=== PATIENT | male | born 1970 | race Caucasian/White ===

== ENCOUNTER 2022-05-25 15:06 | Outpatient (RCR) | payer MEDICAID, SELFPAY | END 2022-07-22 14:14 | disposition home or self-care (01) | PROVIDERS: PCP Family Medicine; Visit Provider Family Medicine | DX: M54.9 Dorsalgia, unspecified (principal); Z51.89 Encounter for other specified aftercare | CPT/HCPCS: 97110; 97140; 97162 ==

== ENCOUNTER 2022-06-15 15:11 | Outpatient (CLI) | payer MEDICAID, SELFPAY ==
[2022-06-15 16:48] VITALS: BP 138/76; PULSE 99; RESP 18
--- NOTE | 2022-06-15 17:37 | P.STN_ITS ---
Stress Test Note Date Date Seen: 06/15/22 Providers Referring provider: Osman Barros Primary care provider: Osman Barros Stress test physician: Philippe Nieto Stress Test Note Stress test ordered: Stress Echo Indication for test: Chest pain Results discussion: Patient is seen for a stress echo, after discussion the risks benefits and side effects to the telephone recorder, he would like to proceed pretest EKG shows a ventricular rate of 83, with a blood pressure 122 and 68. Small Q-waves are noted in the anterior leads in lead 3. Unknown if these are pre-existing. Following normal Blaise protocol patient is exercised for a total time of 9 minutes 46 seconds and achieved a metabolic level of 11.3. During this test he had no chest pain no shortness of breath, pre-existing changes did not change. There is no acute ST wave changes, there is no dysrhythmias, and he had no significant chest pain just some mild fatigue. Impression: Negative electrographic portion of stress echo Follow up suggested: Await echo images these will be read by Cardiology, patient left this testing facility in excellent condition, to follow as above.
== END 2022-06-15 15:12 | disposition home or self-care (01) ==
LOC: STRESS 15:11
PROVIDERS: PCP Family Medicine; Visit Provider Family Medicine
DX: R07.9 Chest pain, unspecified (principal); I34.0 Nonrheumatic mitral (valve) insufficiency
CPT/HCPCS: 93016; 93325; 93351

== ENCOUNTER 2022-08-25 07:05 | Outpatient (CLI) | payer MEDICAID, SELFPAY ==
--- NOTE | 2022-08-25 07:15 | CRLHL7_ITS ---
For Patients: As a result of the Century Cures Act, medical imaging exams and procedure reports are released immediately into your electronic medical record. You may view this report before your referring provider. If you have questions, please contact your health care provider. INDICATION: Back pain radiating into the lower extremities. TECHNIQUE: Multiplanar multisequence noncontrast MR images acquired through the lumbar spine. COMPARISON: None. FINDINGS: The lumbar lordosis is preserved. Mild leftward lumbar curvature. Vertebral heights maintained. No acute fracture. No concerning T1 hypointense marrow replacing lesions or significant marrow edema. Normal conus terminates at L1. T12-L1: No spinal canal or neural foraminal narrowing. L1-2: No spinal canal or neural foraminal narrowing. L2-3: Mild disc degeneration. No spinal canal or neural foraminal narrowing. L3-4: Moderate disc degeneration. Ventral annular fissure. Circumferential disc bulge. Mild facet arthropathy. Minimal spinal canal narrowing. Urlm-om-lgyfwzvh right and mild left lateral recess narrowing. Minimal bilateral neural foraminal narrowing. L4-5: Trace retrolisthesis. Moderate disc degeneration. Posterior disc bulging and endplate spondylitic ridging. Mild facet arthropathy. Mild spinal canal narrowing. Gbhe-yz-zeocjsmn narrowing of the lateral recesses. Vkiu-qg-pvdcpyfl right and mild left neural foraminal narrowing. L5-S1: Moderately advanced disc degeneration. Left eccentric disc height loss associated with type 2 degenerative signal changes. Left eccentric disc bulging and endplate spondylitic ridging. Mild facet arthropathy. No spinal canal narrowing. Moderate left and upvo-kv-taetwxtd right neural foraminal narrowing. Sacroiliac joint degenerative changes. T2 hyperintense lesion in the right kidney interpolar region, typical for a renal cyst. IMPRESSION: 1. Multilevel lumbar spondylosis without spinal canal stenosis. 2. At L3-4, mild to moderate right lateral recess narrowing. 3. At L4-5, mild to moderate narrowing of the lateral recesses. Mild to moderate right neural foraminal narrowing. 4. At L5-S1, moderate left and mild to moderate right neural foraminal narrowing with exiting L5 nerve root encroachment. Dictated by Hubert Vargas MD @ 08/25/2022 1:40:00 PM (Electronically Signed)
--- NOTE | 2022-08-25 08:00 | CRLHL7_ITS ---
For Patients: As a result of the Century Cures Act, medical imaging exams and procedure reports are released immediately into your electronic medical record. You may view this report before your referring provider. If you have questions, please contact your health care provider. INDICATION: Mid back pain. TECHNIQUE: Noncontrast sagittal T1, T2, STIR and axial GRE sequences are provided. No comparisons. FINDINGS: The overall stature, alignment and intrinsic marrow signal of the thoracic spine is within normal limits. Thoracic cord is normal. No suspicious disc bulges or protrusions. No suspicious central canal or foraminal narrowing. IMPRESSION: Unremarkable MRI of the thoracic spine. Dictated by Jase Dai MD @ 08/25/2022 10:59:55 AM (Electronically Signed)
== END 2022-08-25 07:06 | disposition home or self-care (01) ==
PROVIDERS: PCP Family Medicine; Visit Provider Family Medicine
DX: M54.9 Dorsalgia, unspecified (principal)
CPT/HCPCS: 72146; 72148

== ENCOUNTER 2022-10-05 06:59 | Outpatient (CLI) | payer MEDICAID, SELFPAY | END 2022-10-05 07:00 | disposition home or self-care (01) | LOC: INJ CL 06:59 | PROVIDERS: PCP Family Medicine; Visit Provider Family Medicine | DX: M54.16 Radiculopathy, lumbar region (principal); M51.26 Other intervertebral disc displacement, lumbar region | CPT/HCPCS: 64483; J1100; Q9966 ==

== ENCOUNTER 2022-11-09 16:15 | Outpatient (RCR) | payer MEDICAID, SELFPAY | END 2023-04-21 23:59 | disposition home or self-care (01) | PROVIDERS: PCP Family Medicine; Visit Provider Family Medicine | DX: M54.10 Radiculopathy, site unspecified (principal); Z51.89 Encounter for other specified aftercare | CPT/HCPCS: 97110; 97140; 97162; T1013 ==

== ENCOUNTER 2022-11-16 13:46 | Emergency (ER) | payer MEDICAID, SELFPAY ==
[2022-11-16] VITALS (13 sets, daily range): BP systolic 128–147; BP diastolic 81–91; PULSE 85–105; RESP 18; TEMP 36.8; O2SAT 95–98; BMI 30.4
--- NOTE | 2022-11-16 14:42 | CRLHL7_ITS ---
For Patients: As a result of the Cures Act, medical imaging exams and procedure reports are released immediately into your electronic medical record. You may view this report before your referring provider. If you have questions, please contact your health care provider. INDICATION: Cough, shortness of breath. TECHNIQUE: Chest 1 views. COMPARISON: None. FINDINGS: Cardiovascular and mediastinum: Heart size and vasculature are normal in caliber and appearance. Lungs and pleural spaces: Lungs are clear. No sign of infiltrate or mass. No sign of pleural effusion. No pneumothorax. Bones and soft tissues: No significant findings. IMPRESSION: No acute or significant findings. Dictated by Matthew Redd MD @ 11/16/2022 3:47:35 PM (Electronically Signed)
[2022-11-16 14:58] LABS: PCR FLU A Negative PCR FLU A (Negative); PCR FLU B Negative PCR FLU B (Negative); PCR RSV Negative PCR RSV (Negative)
[2022-11-16 14:59] LABS: SARS PCR* POSITIVE SARS-CoV-2 (Negative)
--- NOTE | 2022-11-16 15:09 | ED_ITS ---
HPI - General Adult General Date Seen: 11/16/22 Chief complaint: Cough Stated complaint: Shortness of breath Time Seen by Provider: 11/16/22 14:37 Source: patient Mode of arrival: ambulatory Limitations: no limitations History of Present Illness HPI narrative: This pleasant 52 old gentleman who I know from my spine clinic presents here for evaluation of being positive for COVID. His is positive yesterday he has felt sore throat, pressure in his face, maybe a little bit of shortness of breath associated with this. He has also felt febrile 2 for 2-3 days. He has a history of previous heart issues, tells me he has had heart attack before, but a normal angiograms noted in his chart 2012. No history of any kidney abnormalities, history of hypertension, diabetic neuropathy, denies a significant cough, shortness of breath, that is unable to talk, he has been taking some Tylenol, but really no other medications. Related Data Home Medications Medication Instructions Recorded Confirmed aspirin 81 mg tablet,delayed mg PO DAILY 05/11/22 11/04/22 release clotrimazole 1 % topical cream applic topical .as needed PRN 05/11/22 11/04/22 losartan 25 mg tablet mg PO DAILY 05/11/22 11/04/22 metformin 1,000 mg tablet 1,000 mg PO BID 05/11/22 11/04/22 simvastatin 20 mg tablet 20 mg PO DAILY 05/11/22 11/04/22 insulin glargine 100 unit/mL (3 30 - 36 unit subcut QDAY 09/01/22 11/04/22 mL) subcutaneous pen (Lantus Solostar U-100 Insulin) insulin lispro 100 unit/mL 8 - 10 unit subcut BID 09/01/22 11/04/22 subcutaneous pen (Humalog KwikPen (U-100) Insulin) Previous Rx's Medication Instructions Recorded naproxen 500 mg tablet 500 mg PO BID PRN pain #30 tabs 05/11/22 lancets #100 ea 06/03/22 Blood Glucose Meter #1 ea 06/08/22 Diabetic Test Strips #100 ea 06/08/22 pen needle, diabetic 31 gauge x #100 ea 06/08/22 5/16 nirmatrelvir 300 mg (150 mg See Rx Instructions PO .COMPLEX 11/16/22 x2)-ritonavir 100 mg tablet,dose #30 ea pack(EUA) (Paxlovid) Allergies Allergy/AdvReac Type Severity Reaction Status Date / Time lisinopril Allergy Mild Cough Verified 11/04/22 08:38 Review of Systems Status of ROS: Reports: 10 or more systems reviewed and unremarkable except as noted in History and below [facility] Medical History History of coronary artery disease History of myocardial infarction (06/15/13) History of treatment for tuberculosis (06/11/21) Surgical History History of exploratory laparotomy (04/17/06) History of umbilical hernia repair (2014) Social History Narrative: , 3 kids, level glass forming machine operator, non-smoker, no EtOH Walks for exercise. Smoking Status: Never smoker How often do you have a drink containing alcohol: never How often do you have six or more drinks on one occasion: Never AUDIT-C Alcohol total score: 0 Non-prescribed substance use: denies use Exam Narrative: Exam Narrative: Patient is speaking normally, no problem with slurring words, oriented x3. Head eyes ears nose and throat exam show equal pupils, no scleral icterus, extraocular muscles are normal, no facial droop, speech is normal, trachea normal and midline. Thyroid normal midline palpable not enlarged. Chest shows symmetrical rise bilaterally, normal auscultation with no wheezes, no increased work of breathing, no overt bruising or lesions seen, no tenderness is noted on auscultation. Heart sounds normal with no S3-S4 no murmurs clicks or gallops. Abdomen shows no obvious masses or hepatosplenomegaly, no organomegaly, bowel sounds are normal in all quadrants. No tenderness is noted also in all quadrants. Upper and lower extremities show normal power, normal range of motion, pulses are normal, sensations normal, fine motor movements are normal, pelvis is stable to rocking. Cervical spine shows normal range of motion, and palpably not tender. Thoracic spine shows normal range of motion, and palpably not tender, lumbar spine shows no tenderness to palpation percussion and is otherwise normal range of motion. Skin shows no rashes, petechiae or eccymosis. Const: Vital Signs, click to edit/add: Vital Signs - 24 hr 11/16/22 13:59 11/16/22 15:22 11/16/22 15:23 Temperature 98.2 F Pulse Rate 92 93 Pulse Rate [Pulse Oximeter] 105 H Respiratory Rate 18 Blood Pressure 128/90 H Blood Pressure [Ri ght Upper Arm] 147/90 H Pulse Oximetry 98 98 98 Oxygen Delivery Me thod Room Air 11/16/22 15:30 11/16/22 15:31 11/16/22 15:32 Temperature Pulse Rate 89 92 93 Pulse Rate [Pulse Oximeter] Respiratory Rate Blood Pressure 138/88 Blood Pressure [Ri ght Upper Arm] Pulse Oximetry 96 98 95 Oxygen Delivery Me thod 11/16/22 15:45 11/16/22 16:00 11/16/22 16:01 Temperature Pulse Rate 91 89 93 Pulse Rate [Pulse Oximeter] Respiratory Rate Blood Pressure 143/91 H Blood Pressure [Ri ght Upper Arm] Pulse Oximetry 96 96 98 Oxygen Delivery Me thod 11/16/22 16:15 Temperature Pulse Rate 88 Pulse Rate [Pulse Oximeter] Respiratory Rate Blood Pressure Blood Pressure [Ri ght Upper Arm] Pulse Oximetry 98 Oxygen Delivery Me thod Course Course Hospital Course: I discussed with seen on through the interpreter for the deaf, that is diagnosis of COVID, and that he is a good candidate for Paxlovid, we will just have to have him stop the simvastatin. Went over the risks benefits and side effects with him. Remainder of his blood tests were normal, his D-dimer age adjusted was normal. And he was hyperglycemic but has not used any of his diabetic medications today. I recommend that he check his blood sugar least twice a day now for the next 5 days, get himself back in the norm. If he does develop chest pain shortness of breath, then he is needs to come back to the emergency room. Vital Signs Vital signs: Initial Vital Signs Temperature 98.2 F 11/16/22 13:59 Temperature Source Temporal Artery Scan 11/16/22 13:59 Pulse Rate 105 H 11/16/22 13:59 Respiratory Rate 18 11/16/22 13:59 Blood Pressure 147/90 H 11/16/22 13:59 Blood Pressure Mean 109 11/16/22 13:59 Blood Pressure Position Supine 11/16/22 13:59 Pulse Oximetry 98 02/14/23 13:59 Oxygen Delivery Method 11/16/22 13:59 Vital Signs Temperature 98.2 F 11/16/22 13:59 Pulse Rate 105 H 11/16/22 13:59 Respiratory Rate 18 11/16/22 13:59 Blood Pressure 147/90 H 11/16/22 13:59 Pulse Oximetry 98 11/16/22 13:59 Oxygen Delivery Method 11/16/22 13:59 Temperature 98.2 F 11/16/22 13:59 Pulse Rate 88 11/16/22 16:15 Respiratory Rate 18 11/16/22 13:59 Blood Pressure 143/91 H 11/16/22 16:01 Pulse Oximetry 98 11/16/22 16:15 Oxygen Delivery Method 11/16/22 13:59 Medical Decision Making MDM Narrative Medical decision making narrative: Life-threatening differential diagnosis includes occluded COPD exacerbation, pulmonary edema, acute coronary syndromes, pulmonary embolism, pneumonia, and pneumothorax. Other differential diagnosis considerations include asthma, bronchitis as well as other etiologies Lab Data Lab results reviewed: Yes I reviewed the patient's lab results Labs: Lab Results 11/16/22 11/16/22 11/16/22 Range/Units 14:10 14:43 15:15 WBC (4.50-11.00) K/uL RBC (4.30-5.90) m/uL Hgb (13.5-17.5) gm/dL Hct (37.0-53.0) % MCV (80-100) fL MCH (26-34) pg MCHC (32-36) gm/dL RDW Coeff of Aniket (11.5-15.5) % Plt Count (140-440) K/uL Neut % (Auto) (42.0-72.0) % Lymph % (Auto) (20-44) % [place] % (Auto) (0.0-11.0) % Eos % (Auto) (0.0-7.0) % Baso % (Auto) (0.0-3.0) % Neut # (Auto) (1.7-7.0) K/uL Lymph # (Auto) (0.90-2.90) K/uL [place] # (Auto) (0.00-0.90) K/UL Eos # (Auto) (0.00-0.50) K/uL Baso # (Auto) (0.00-0.30) K/uL D-Dimer Quant (PE/DVT) (0.00-0.50) ug/ml Sodium 136 (135-149) mmol/L Potassium 3.5 L (3.6-5.1) mmol/L Chloride 101 (96-114) mmol/L Carbon Dioxide 26 (20-32) mmol/L BUN 8 (7-30) mg/dL Creatinine 0.5 (0.5-1.5) mg/dL Estimated Creat Clear 130.43 Estimated GFR 121 ml/min Glucose 455 H* (60-115) mg/dL Calcium 8.3 L (8.4-10.6) mg/dL NT-Pro-B Natriuret Pep < 20 pg/mL SARS-CoV-2 (PCR) POSITIVE SARS-CoV-2 A (Negative) Influenza Type A (PCR) Negative PCR FLU A (Negative) Influenza Type B (PCR) Negative PCR FLU B (Negative) RSV (PCR) Negative PCR RSV (Negative) POC Troponin I 0.00 L (0.01-0.04) ng/ml 11/16/22 11/16/22 Range/Units 15:15 15:15 WBC 6.92 (4.50-11.00) K/uL RBC 5.22 (4.30-5.90) m/uL Hgb 15.1 (13.5-17.5) gm/dL Hct 43.4 (37.0-53.0) % MCV 83 (80-100) fL MCH 29 (26-34) pg MCHC 35 (32-36) gm/dL RDW Coeff of Aniket 12.6 (11.5-15.5) % Plt Count 279 (140-440) K/uL Neut % (Auto) 57.0 (42.0-72.0) % Lymph % (Auto) 31.6 (20-44) % [place] % (Auto) 8.4 (0.0-11.0) % Eos % (Auto) 1.7 (0.0-7.0) % Baso % (Auto) 0.6 (0.0-3.0) % Neut # (Auto) 3.94 (1.7-7.0) K/uL Lymph # (Auto) 2.19 (0.90-2.90) K/uL [place] # (Auto) 0.60 (0.00-0.90) K/UL Eos # (Auto) 0.12 (0.00-0.50) K/uL Baso # (Auto) 0.04 (0.00-0.30) K/uL D-Dimer Quant (PE/DVT) 0.52 H (0.00-0.50) ug/ml Sodium (135-149) mmol/L Potassium (3.6-5.1) mmol/L Chloride (96-114) mmol/L Carbon Dioxide (20-32) mmol/L BUN (7-30) mg/dL Creatinine (0.5-1.5) mg/dL Estimated Creat Clear Estimated GFR ml/min Glucose (60-115) mg/dL Calcium (8.4-10.6) mg/dL NT-Pro-B Natriuret Pep pg/mL SARS-CoV-2 (PCR) (Negative) Influenza Type A (PCR) (Negative) Influenza Type B (PCR) (Negative) RSV (PCR) (Negative) POC Troponin I (0.01-0.04) ng/ml Imaging Data Chest x-ray: Attestation: I have reviewed the pertinent imaging results. My impression: No acute changes Radiologist's impression: Patient: MARTIN ROMERO Facility:?[facility] Patient ID:?[id number] Site Patient ID:?[id number]. Site :?[id number] Study:?XRay Chest PORTABLE-11/16/2022 3:34:31 PM Ordering Physician:?Emilia Paez Final Report: INDICATION: Cough, shortness of breath. TECHNIQUE: Chest 1 views. COMPARISON: None. FINDINGS: Cardiovascular and mediastinum: Heart size and vasculature are normal in caliber and appearance. Lungs and pleural spaces: Lungs are clear. No sign of infiltrate or mass. No sign of pleural effusion. No pneumothorax. Bones and soft tissues: No significant findings. IMPRESSION: No acute or significant findings. Dictated by Matthew Redd MD @ 11/16/2022 3:47:35 PM (Electronic Signature) ECG Data Attestation: I personally reviewed and interpreted this ECG as follows: Interpretation: EKG shows normal sinus rhythm, no acute ST wave changes, Q-waves noted in lead 3. When compared to previous EKG dated 09/13/2021, no acute changes Discharge Plan Discharge Clinical Impression: COVID-19, Diabetes, Acute hyperglycemia Patient Disposition: Home, Self-Care Condition: Stable Instructions: Diabetic Hyperglycemia (ED), Diabetes and Nutrition (ED), COVID- 19 (Coronavirus Disease 2019) (ED) Additional Instructions: Home rest use of medications for your COVID, please check her sugars twice a day, just with her sliding scale your glucose level, return as needed for shortness of breath chest pain or other symptoms. Stop your simivastatin and restart it 3 days after you stop taking the covid med. Prescriptions: New Paxlovid (EUA) 300 mg (150 mg x 2)-100 mg tablets,dose pack See Rx Instructions .ROUTE .COMPLEX Qty: 30 0RF Rx Instructions: take TWO 150 mg tablets of nirmatrelvir with ONE 100 mg tablet of ritonavir twice daily for 5 days No Action clotrimazole 1 % cream topical .as needed PRN losartan 25 mg tablet PO DAILY metformin 1,000 mg tablet 1,000 mg PO BID simvastatin 20 mg tablet 20 mg PO DAILY aspirin 81 mg tablet,delayed release (DR/EC) PO DAILY naproxen 500 mg tablet 500 mg PO BID PRN (Reason: pain) Qty: 30 0RF (DME) lancets Misc See Rx Instructions .Route Qty: 100 12RF Rx Instructions: QID testing (DME) Blood Glucose Meter Misc See Rx Instructions .Route Qty: 1 0RF Rx Instructions: As directed (DME) Diabetic Test Strips Misc See Rx Instructions .Route Qty: 100 12RF Rx Instructions: 3x/day (DME) pen needle, diabetic 31 gauge x 5/16 needle See Rx Instructions .Route Qty: 100 0RF Rx Instructions: As directed, testing 3x/day insulin lispro [Humalog KwikPen Insulin] 100 unit/mL insulin pen 8 - 10 unit subcut BID insulin glargine [Lantus Solostar U-100 Insulin] 100 unit/mL (3 mL) insulin pen 30 - 36 unit subcut QDAY Follow Up/Referrals: Osman Barros MD [Primary Care Provider] - Stand Alone Forms: [employer] Info Instructions
[2022-11-16 15:32] LABS: Basophils Absolute Auto 0.04 K/uL (0.00-0.30); Basophils Percent Auto 0.6 % (0.0-3.0); Eosinophils Absolute Auto 0.12 K/uL (0.00-0.50); Eosinophils Percent Auto 1.7 % (0.0-7.0); Hematocrit 43.4 % (37.0-53.0); Hemoglobin* 15.1 gm/dL (13.5-17.5); Immature Granulocytes Abs Auto 0.05 K/uL (0.00-0.30); Immature Granulocytes Pct Auto 0.7 %; Lymphocytes Absolute Auto 2.19 K/uL (0.90-2.90); Lymphocytes Percent Auto 31.6 % (20-44); Mean Corpuscular HGB Conc 35 gm/dL (32-36); Mean Corpuscular Hemoglobin 29 pg (26-34); Mean Corpuscular Volume 83 fL (80-100); Monocytes Percent Auto 8.4 % (0.0-11.0); Neutrophils Absolute Auto 3.94 K/uL (1.7-7.0); Platelet Count* 279 K/uL (140-440); RDW Coefficient of Variation % 12.6 % (11.5-15.5); Red Blood Count 5.22 m/uL (4.30-5.90); White Blood Count* 6.92 K/uL (4.50-11.00)
[2022-11-16 15:33] LABS: Slide Review Reflex No
[2022-11-16 15:55] LABS: Chloride* 101 mmol/L (96-114); Potassium* 3.5 mmol/L (3.6-5.1); Sodium* 136 mmol/L (135-149)
[2022-11-16 15:58] LABS: Carbon Dioxide* 26 mmol/L (20-32); Creatinine* 0.5 mg/dL (0.5-1.5); D Dimer Quantitative* 0.52 ug/ml (0.00-0.50); Est. Creatinine Clearance* 130.43; Estimated Glomerular Filt Rate 121 ml/min
[2022-11-16 15:59] LABS: Blood Urea Nitrogen* 8 mg/dL (7-30); Calcium* 8.3 mg/dL (8.4-10.6)
[2022-11-16 16:07] LABS: Glucose* 455 mg/dL (60-115)
[2022-11-16 16:08] LABS: NT Pro B Type NatriureticPept* < 20 pg/mL
== END 2022-11-16 17:00 | disposition home or self-care (01) ==
PROVIDERS: Emergency Provider Family Medicine; PCP Family Medicine
DX: U07.1 COVID-19 (principal); E11.65 Type 2 diabetes mellitus with hyperglycemia
CPT/HCPCS: 36415; 71045; 80048; 83880; 84484; 85025; 85379; 87502; 87634; 87635; 93005; 99284

== ENCOUNTER 2022-11-30 08:20 | Outpatient (CLI) | payer MEDICAID, SELFPAY ==
[2022-11-30 09:45] LABS: Albumin* 3.7 g/dL (3.3-5.0); Chloride* 104 mmol/L (96-114)
[2022-11-30 09:46] LABS: Potassium* 3.9 mmol/L (3.6-5.1); Sodium* 138 mmol/L (135-149)
[2022-11-30 09:48] LABS: Alkaline Phosphatase* 109 U/L (40-150); Aspartate Amino Transferase* 20 U/L (12-35); Blood Urea Nitrogen* 13 mg/dL (7-30); Carbon Dioxide* 29 mmol/L (20-32); Cholesterol* 165 mg/dL (90-199); Creatinine* 0.6 mg/dL (0.5-1.5); Estimated Glomerular Filt Rate 115 ml/min; Glucose* 254 mg/dL (60-115); Total Protein* 6.3 g/dL (6.0-8.3); Triglycerides* 152 mg/dL (40-149)
[2022-11-30 09:49] LABS: Alanine Aminotransferase* 22 U/L (4-50); Calcium* 8.7 mg/dL (8.4-10.6); HDL Cholesterol* 42 mg/dL (>=40); LDL Cholesterol Calculated 93 mg/dL (<100)
[2022-11-30 09:59] LABS: Creatinine Urine 120.2 mg/dL
[2022-11-30 10:22] LABS: Microalbumin Creatinine Ratio 0 mg/g (0-30); Microalbumin Urine 1 mg/dL
== END 2022-11-30 08:21 | disposition home or self-care (01) ==
LOC: NFLDREF 08:20
PROVIDERS: PCP Family Medicine; Visit Provider Family Medicine
DX: E11.9 Type 2 diabetes mellitus without complications (principal); I10 Essential (primary) hypertension; R79.89 Other specified abnormal findings of blood chemistry
CPT/HCPCS: 80053; 80061; 82043; 82570

== ENCOUNTER 2024-06-27 16:02 | Outpatient (CLI) | payer MEDICAID, SELFPAY ==
--- OUTSIDE RECORDS SUMMARY | 2024-06-27 16:06 | XMS_ITS | Clinical Summary ---
Author Organization [facility] Address [place], [place] [address] Care Team Providers Care Program Project Manager Name Role Phone Osman Barros MD Primary Care Provider [phone] Allergies No known active allergies Medications Medication Sig Dispensed Refills Start Date End Date Status aspirin 81 mg tablet Take 1 tablet by mouth once daily with a meal. 0 05/09/2012 Active blood sugar diagnostic (BLOOD GLUCOSE TEST) stripIndications:Unc ontrolled type 2 diabetes mellitus without complication, with long-term current use of insulin Dispense item covered by pt ins. 250.00 NIDDM type II - test twice daily 50 Strip 11 04/28/2017 Active losartan (COZAAR) 25 mg tabletIndications:Hy pertension, unspecified type Take 1 tablet by mouth once daily. 90 tablet 3 04/24/2019 Active simvastatin (ZOCOR) 20 mg tabletIndications:Dy slipidemia, goal LDL below 70 Take 1 tablet by mouth at bedtime. 90 tablet 3 07/26/2019 Active metFORMIN (GLUCOPHAGE) 1,000 mg tabletIndications:Ty pe 2 diabetes mellitus without complication, with long-term current use of insulin (HC) TAKE 1 TABLET BY MOUTH TWICE DAILY WITH MEALS 120 tablet 09/17/2019 Active clotrimazole (LOTRIMIN) 1 % creamIndications:Tin ea pedis, unspecified laterality Apply topically to affected area(s) 2 times daily. 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 11/30/2016 Type 2 diabetes mellitus without complication Hypokalemia 07/07/2015 Incisional hernia, without obstruction or gangre ne 07/04/2015 Elevated LFTs 01/04/2014 Chest pain 06/15/2013 Dyslipidemia, goal LDL below 70 06/15/2013 Obesity 06/15/2013 Immunizations Name Administration Dates Next Due Hepatitis B (Adult) 05/16/2014,12/26/2013,2013 Influenza, IIV4 07/26/2019,08/29/2018,10/16/2015 Td (Age >=7 Years) 10/31/2013,04/17/2006 Tdap 10/03/2013 Tdap, Unspecified 10/03/2013 Family History Medical History Relation Name Comments Diabetes Father Relation Name Status Comments Father Social History Tobacco Use Types Packs/Day Years Used Date Smoking Tobacco: Never Smokeless Tobacco: Never Tobacco Cessation:Counseling Given: Yes Alcohol Use Standard Drinks/Week Comments No 0 (1 standard drink = 0.6 oz pur e alcohol) stopped in 2007 PHQ-2 Answer Date Recorded PHQ-2 Score 0 01/02/2019 Social Connections Answer Date Recorded Frequency of Communication with Friends and Fami ly Not on file 08/20/2022 Financial Resource Strain Answer Date R ecorded Difficulty of Paying Living Expenses Not on file 10/03/2021 Difficulty of Paying Living Expenses Not on file 10/03/2021 Sex and Gender Information Value Date Recorded Sex Assigned at Not on file Gender Identity Not on file Sexual Orientation Not on file Obstetrics History Last Filed Vital Signs Vital Sign Reading Time Taken Comments Blood Pressure 135/81 10/30/2019 7:48 AM CHAIN PERSON Pulse 80 10/30/2019 7:45 AM CHAIN PERSON Temperature 36.6 ??C (97.9 ??F) 07/26/2019 8:13 AM CD T Respiratory Rate 16 07/21/2015 10:23 AM CDT Oxygen Saturation 97% 10/30/2019 7:45 AM CHAIN PERSON Inhaled Oxygen Concentration - - Weight 88.3 kg (194 lb 9.6 oz) 10/30/2019 7:45 A M CHAIN PERSON Height 162.8 cm (5' 4.1) 10/30/2019 7:45 AM CHAIN PERSON Body Mass Index 33.3 10/30/2019 7:45 AM CHAIN PERSON Plan of Treatment Health Maintenance Due Date Last Done Comments Pneumococcal series for age 6-64 (1 of 2 - PCV) 1974 HIV for age 15-65 1983 Zoster (shingles) series for age 50+ (1 of 2) 2018 Depression screening for age 12+ 01/03/2020 01/03/20 19, 05/12/2017 BMI (ht and wt on same day) for age 18+ 10/30/2020 10/30/2019, 07/26/2019, 04/24/2019, Additional history exists Fecal testing non-DNA (FIT,FOBT,iFOBT) for age 45-75 10/14/2022 10/14/2021 Tetanus booster 10/31/2023 10/31/2013, 10/2013, 10/03/2013, Additional history exists COVID-19 vaccine series ( season) 2024 07/20/2021, 07/01/2021 Influenza for age 50-64 06/03/2024 07/26/20 19, 08/29/2018, 10/16/2015 Lipids for age 45-75 06/17/2026 06/17/2021, 07/26/2019, 05/25/2018, Additional history exists Tdap Completed 10/03/2013, 10/03/2013 Hepatitis C screening for ag e 18-79 Completed 12/28/2013 Medical Devices Implanted Type Area Vice President And Portfolio Manager Device Identifier Shelf Expiration Date Model / Serial / Lot Mesh Ventral 6x8in Ventralightst W/Echo Ps - [id number] Implanted:Qty: 1 on 07/04/2015 by Alonso Ortiz MD at [facility] N/A: Abdomen [employer] 03/30/2017 [id number] / / [id number] Procedures Procedure Name Priority Date/Time Associated Diagnosis Comments OCCULT BLOOD IFOBT STOOL Routine 10/14/2021 9:00 AM CHAIN PERSON LIPID PANEL Routine 06/17/2021 10:59 AM CDT ANTI HCV Routine 12/28/2013 9:40 AM CDT Elevated LFTs from Last 3 Months or Most Recently Relevant to Health Maintenance Results * OCCULT BLOOD IFOBT STOOL (10/14/2021 9:00 AM CHAIN PERSON) STOOL BLOOD ,IFOBT Negative Negative 10/15/2021 10:19 AM CHAIN PERSON [facility] Stool STOOL SPECIMEN / Unknown 10/14/2021 9:00 AM CHAIN PERSON 10/15/2021 10:10 AM CHAIN PERSON Demi Henderson RN, [facility] [address] [place] [address] * (ABNORMAL) LIPID PANEL (06/17/2021 10:59 AM CDT) CHOLESTEROL,TOTAL 182 100 - 199 mg/dL 06/18/2021 10:16 AM CDT [facility] TRIGLYCERIDES 241(H) <150 mg/dL 06/18/2021 10:16 AM CDT [facility] HDL CHOLESTEROL 35(L) >40 mg/dL 10:16 AM CDT [facility] NON-HDL CHOLESTEROL 147(H) <145 mg/dl 06/18/2021 10:16 AM CDT [facility] CHOL/HDL RATIO 5.20(H) <4.50 06/18/2021 10:16 AM CDT [facility] LDL CHOLESTEROL 99 <=130 mg/dL 06/18/2021 10:16 AM CDT [facility] VLDL CHOLESTEROL 48(H) <=30 mg/dL 06/18/2021 10:16 AM CDT [facility] PROVIDER ORDERED STATUS RANDOM 06/18/2021 10:16 AM CDT [facility] Blood BLOOD SPECIMEN / Unknown 06/17/2021 10:59 AM CDT 06/18/2021 9:37 AM CDT Demi Henderson RN, [facility] [address] [id number] * ANTI HCV (12/28/2013 9:40 AM CDT) ANTI HCV Non-reacti ve [facility] Blood specimen (specimen) BLOOD SPECIMEN / Unknown 12/28/2013 9:40 AM CDT 12/28/2013 9:33 AM CDT Efe Grossman MD SEND OUTS [facility] [place]NAL ZIP [id number] [place] [id number] from Last 3 Months or Most Recently Relevant to Health Maintenance Advance Directives * Full Code (Latest Code Status on File) Date Activated Date Inactivated Comments 07/04/2015 11:38 AM 07/08/2015 3:47 PM * Full Code Date Activated Date Inactivated Comments 06/15/2013 10:02 AM 06/15/2013 9:22 PM Care Teams Program Project Manager Relationship Specialty Start Date End Date Osman Barros MD [address] [place] [id number] PCP - General Family Practice 06/15/22
== END 2024-06-27 16:03 | disposition home or self-care (01) ==
PROVIDERS: PCP Family Medicine; Visit Provider Family Medicine
DX: E11.9 Type 2 diabetes mellitus without complications (principal); I10 Essential (primary) hypertension; R79.89 Other specified abnormal findings of blood chemistry
CPT/HCPCS: 80053; 80061; 82043; 82570